=== PATIENT | male | born 1965 | race Caucasian/White ===

== ENCOUNTER 2017-12-15 09:07 | Emergency (ER) | payer BC ==
[2017-12-15 09:40] VITALS: BP 145/94
--- NOTE | 2017-12-15 10:00 | UC ---
Lower Extremity/Ankle HPI - HPI Summary HPI Summary: injured right great toe 1 week ago---has had continued pain and swelling -- walking on side of foot-- - History of Current Complaint Chief Complaint: UCLowerExtremity Stated Complaint: RT FOOT/BIG TOE Time Seen by Provider: 12/15/17 09:48 Hx Obtained From: Patient Onset/Duration: Sudden Onset, Lasting Weeks - 1, Still Present Pain Intensity: 8 Pain Scale Used: 0-10 Numeric Aggravating Factor(s): Standing, Ambulation Alleviating Factor(s): Rest, Elevation Able to Bear Weight: No - Allergies/Home Medications Allergies/Adverse Reactions: Allergies Allergy/AdvReac Type Severity Reaction Status Date / Time No Known Allergies Allergy Verified 12/15/17 09:40 Home Medications: Home Medications Levothyroxine TAB* [Synthroid TAB*] 50 mcg PO DAILY 12/15/17 [History Confirmed 12/15/17] PMH/Surg Hx/FS Hx/Imm Hx Previously Healthy: No Endocrine History: Hypothyroidism - Surgical History Surgical History: Yes Surgery Procedure, Year, and Place: inguinal hernia repair - Family History Known Family History: Positive: None - Social History Occupation: Employed Full-time Lives: With Family Alcohol Use: Weekly Alcohol Amount: weekends Substance Use Type: None Smoking Status (MU): Never Smoked Tobacco Review of Systems Constitutional: Negative Skin: Negative Eyes: Negative ENT: Negative Respiratory: Negative Cardiovascular: Negative Gastrointestinal: Negative Genitourinary: Negative Motor: Decreased ROM Neurovascular: Negative Musculoskeletal: Arthralgia - right great toe Neurological: Negative Psychological: Negative Is Patient Immunocompromised?: No All Other Systems Reviewed And Are Negative: Yes Physical Exam Triage Information Reviewed: Yes Appearance: Well-Appearing, No Pain Distress, Well-Nourished Vital Signs: Initial Vital Signs Temp 99.1 F 12/15/17 09:34 Pulse 86 12/15/17 09:34 Resp 14 12/15/17 09:34 BP 145/94 12/15/17 09:34 Pulse Ox 98 12/15/17 09:34 Vital Signs Reviewed: Yes Eye Exam: Normal Eyes: Positive: Conjunctiva Clear ENT Exam: Normal ENT: Positive: Normal ENT inspection, Hearing grossly normal. Negative: Muffled voice, Hoarse voice Dental Exam: Normal Neck exam: Normal Neck: Positive: Supple, Nontender Respiratory Exam: Normal Respiratory: Positive: Chest non-tender, No respiratory distress, No accessory muscle use Cardiovascular Exam: Normal Cardiovascular: Positive: RRR, Pulses Normal, Brisk Capillary Refill Musculoskeletal Exam: Other - right great toe Musculoskeletal: Positive: Strength Limited @, ROM Limited @, Edema @ Neurological Exam: Normal Neurological: Positive: Alert, Muscle Tone Normal Psychological Exam: Normal Skin Exam: Normal Diagnostics - Radiology No standard instances Xray Interpretation: No Acute Changes Radiology Interpretation Completed By: ED Physician, Radiologist - Patient Name : GWEN SANTANA Medical Record#: [id number] Ordering Physician: Crystal Albrecht NP Acct.#: [id number] : 1965 Age: 52 Sex: M Location: [facility] Exam Date : 12/15/17 1000 ADM Status: REG ER Order Information: TOE RIGHT GREAT Accession Number: [id number] CPT: 51285 INDICATION: Right great toe injury COMPARISON: None TECHNIQUE: AP, lateral, and oblique views were obtained. FINDINGS: There is no acute fracture or dislocation. 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 IMPRESSION: NO ACUTE BONY FINDINGS. < Electronically signed by Nemesio Coello MD in [place]> 12/15/17 1013 Dictated By : Nemesio Coello MD Dictated Date/Time: 12/15/17 1013 Transcribed Date/Time: 12/15/17 1012 Copy to: CC:Shelby Chung MD; Crystal Albrecht NP; Brenden Pollack MD Imaging - [facility] Imaging - [place] [facility] [address] [place] [address] ph [phone] ph ([phone]) ph ( [phone]) 1 of 1 Lower Extremity Course/Dx - Course Course Of Treatment: post op shoe, uric acid, ibuprofen follow blood pressure with pcp - Differential Dx/Diagnosis Provider Diagnoses: elevated blood pressure with out history of hypertension, right great toe contusion Discharge - Sign-Out/Discharge Documenting (check all that apply): Discharge/Admit/Transfer - Discharge Plan Condition: Stable Disposition: HOME Prescriptions: Ibuprofen TAB* [Motrin TAB* 800 MG] 800 mg PO Q8H PRN #30 tab PRN Reason: pain Patient Education Materials: Osteoarthritis (ED), Gout (ED), Foot Contusion (ED ), Hypertension (ED) Referrals: Brenden Pollack MD [Primary Care Provider] - 2 Weeks (for blood pressure re-check) - Billing Disposition and Condition Condition: STABLE Disposition: Home
--- NOTE | 2017-12-15 10:16 | RAD ---
INDICATION: Right great toe injury COMPARISON: None TECHNIQUE: AP, lateral, and oblique views were obtained. FINDINGS: There is no acute fracture or dislocation. 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 IMPRESSION: NO ACUTE BONY FINDINGS.
[2017-12-15 14:03] LABS: Uric Acid 6.8 mg/dL (4.4-7.6)
== END 2017-12-15 10:50 | disposition home or self-care (01) ==
LOC: UCCORT 09:07
DX: S90.111A Contusion of right great toe without damage to nail, initial encounter (principal); X58.XXXA Exposure to other specified factors, initial encounter; Y93.9 Activity, unspecified; Y92.9 Unspecified place or not applicable; E03.9 Hypothyroidism, unspecified; R03.0 Elevated blood-pressure reading, without diagnosis of hypertension
CPT/HCPCS: 36415; 84550; 86140; 99202; G0463

== ENCOUNTER 2019-09-05 13:01 | Emergency (ER) | payer BC ==
[2019-09-05 13:15] VITALS: BP 100/72
--- NOTE | 2019-09-05 13:29 | UC ---
Laceration HPI - HPI Summary HPI Summary: 54 y/o male presents to the urgent care c/o laceration of the left middle and ring finger w/ a clean razor blade while putting some tiles on the entrance on his house around 1245pm. Pain is 6/10 w/o any numbness or tingling sensation over the finger of left hand. He irrigated finger and bleeding stopped w/ pressure. Pt and are not sure when he got the last Tetanus vaccine. Pt can move fingers w/o any difficulty. Pt denies fever, numbness or tingling sensation over the left hand or fingers,SOB, chest pain, abdominal pain, N/v/d. - History Of Current Complaint Chief Complaint: UCLaceration Stated Complaint: LEFT FINGER LACERATION Time Seen by Provider: 09/05/19 13:27 Hx Obtained From: Patient Laceration Location: Finger - Left 3rd and 4th fingers laceration w/ a razor blade Mechanism Of Injury: Sharp Trauma - w/ a razor s/p cutting floor tiles Onset/Duration: Lasting Minutes - 1 hr Severity: Moderate Pain Intensity: 5 Pain Scale Used: 0-10 Numeric Aggravating Factors: Other: - touch Related History: Dominant Hand Right - Allergies/Home Medications Allergies/Adverse Reactions: Allergies Allergy/AdvReac Type Severity Reaction Status Date / Time No Known Allergies Allergy Verified 09/05/19 13:07 Home Medications: Home Medications Levothyroxine TAB* [Synthroid TAB*] 50 mcg PO DAILY 12/15/17 [History Confirmed 09/05/19] Bacitracin OINTMENT* 1 applic TOPICAL TID #1 tube 09/05/19 [Rx] PMH/Surg Hx/FS Hx/Imm Hx Previously Healthy: Yes Endocrine History: Hypothyroidism - Surgical History Surgical History: Yes Surgery Procedure, Year, and Place: inguinal hernia repair - Family History Known Family History: Positive: Hypertension - Social History Occupation: Employed Full-time Lives: With Family Alcohol Use: Weekly Alcohol Amount: weekends Substance Use Type: None Smoking Status (MU): Never Smoked Tobacco - Immunization History Hx Tetanus, Diphtheria Vaccination: No - unsure and requests Review of Systems All Other Systems Reviewed And Are Negative: Yes Constitutional: Positive: Negative Skin: Positive: Other - laceration of left 3rd and 4th finger w/ a razor about 1 hr ago Eyes: Positive: Negative, Diplopia Respiratory: Positive: Negative Cardiovascular: Positive: Negative Gastrointestinal: Positive: Negative Genitourinary: Positive: Negative Motor: Positive: Negative Neurovascular: Positive: Negative Musculoskeletal: Positive: Other: - 3rd and 4th finger pain s/p laceration w/ a razor Neurological/Mental Status: Positive: Negative Psychological: Positive: Negative Is Patient Immunocompromised?: No Physical Exam - Summary Physical Exam Summary: Vital Signs Reviewed: Yes General: well developed, well nourished male sitting in the examining table w/o any apparent distress Eye Exam: Normal Eyes: Positive: Conjunctiva Clear - PERRLA, EOMI, fundi grossly normal ENT: Positive: Normal ENT inspection, Hearing grossly normal, Pharynx normal, TMs normal Neck: Positive: Supple, Nontender, No Lymphadenopathy Respiratory: Positive: Chest non-tender, Lungs clear, Normal breath sounds, No respiratory distress Cardiovascular: Positive: RRR, No Murmur, Pulses Normal, Brisk Capillary Refill Abdomen Description: Positive: Nontender, No Organomegaly, Soft. Negative: CVA Tenderness (R), CVA Tenderness (L) Bowel Sounds: Positive: Present Musculoskeletal: Positive: Strength Intact, ROM Intact, No Edema Neurological: Positive: Alert, Muscle Tone Normal Psychological Exam: Normal Skin: Positive: palmar side of the tip of left 3rd and 4th finger w/ semilunar linear superficial laceration on both fingers about 3.0cm and 2.0 cm respectively, cm in size, bleeding stopped w/ pressure, no foreign body observed. mild tenderness to palpation, no ecchymosis around finger. FROM of all fingers and left hand, sensation intact, capillary refill brisk, and pulses WNL. Triage Information Reviewed: Yes Vital Signs: Initial Vital Signs Temp 97.2 F 09/05/19 13:08 Pulse 93 09/05/19 13:08 Resp 16 09/05/19 13:08 BP 100/72 09/05/19 13:08 Pulse Ox 95 09/05/19 13:08 Laceration Repair - Laceration Repair 1 Description: Irregular - left tip of the 3rd figer w/ a semilunar superficial laceratio. Also left tip of 4th finger w/ a superficial semilunar laceration. Laceration Size After Repair: Length (cm) - left 3rd finger: 3cm in size. and Left 4th finger: 2 cm in size Modified For Repair: No Anesthesia Used: 1.0% Lido - digital block on both finger 3rd and 4th Cleansing Completed Via Routine Prep: Yes Irrigation With Pressure Irrigation Device: Yes Closure Material: Sutures - left 3rd finger w/ 6 sutures, left index finger w/ 4 sutures Closure Method: Single Layer Suture Of: Skin, SQ Suture Type: Prolene - 5.0 Laceration Course/Dx - Course/Dx Course Of Treatment: 54 y/o male presents to the urgent care c/o laceration of the left middle and ring finger w/ a clean razor blade while putting some tiles on the entrance on his house around 1245pm. Pain is 6/10 w/o any numbness or tingling sensation over the finger of left hand. He irrigated finger and bleeding stopped w/ pressure. Pt and are not sure when he got the last Tetanus vaccine. Pt can move fingers w/o any difficulty. Pt denies fever, numbness or tingling sensation over the left hand or fingers,SOB, chest pain, abdominal pain, N/v/d. Hx obtained. Pt w/ palmar side of the tip of left 3rd and 4th finger w/ semilunar linear superficial laceration on both fingers about 3.0cm and 2.0 cm respectively, cm in size, bleeding stopped w/ pressure, no foreign body observed on examination. LACERATION PROCEDURE NOTE: . Copious irrigation was done with saline by the nurse and the wound explored. There was no FB or deep structure injury noted. FROM of left hand and finger. procedure was explained and consent obtained, Timeout performed. The wound was anesthetized by digital block at the base of both fingers with 4 mL of 1% lido with good anesthesia. Sterile drape and prep were done. There were 6 sutures on the left middle finger and 4 sutures on the left ring finger with 5.0 prolene type of suture. The length of the wound after closure was 3.0cm and 2.0 respectively. No debridement done. Pt tolerated the procedure well without adverse effects. Neurovascular intact and FROM. Tdap ordered and applied by nurse. Bacitracin oint. applied over wounds and tube sterile dressing done by nurse. Pt advised to f/u suture removal in 10-12 days and if any signs of infection develop to immediately return to the urgent care of PCP for further management and treatment. Pt understood and agreed and left the clinic ambulating A&Ox3. - Differential Dx - Laceration/Wound Differental Diagnoses: Abrasion, Avulsion, Fracture, Laceration, Puncture Wound , Tendon Laceration - Diagnosis Provider Diagnosis: Laceration of left middle finger, Laceration of left index finger Discharge ED - Sign-Out/Discharge Documenting (check all that apply): Patient Departure - d/c home All imaging exams completed and their final reports reviewed: No Studies - Discharge Plan Condition: Stable Disposition: HOME Prescriptions: Bacitracin OINTMENT* 1 applic TOPICAL TID #1 tube Patient Education Materials: Care For Your Stitches (ED), Laceration (ED) Referrals: Brenden Pollack MD [Primary Care Provider] - 1 Week Additional Instructions: 1-Please apply Bacitracin oint as directed to prevent infection 2- F/u suture removal in 10-12 days w/ your PCP or here at the urgent care. 3- You were given a booster of Tetanus vaccine today 4-Take Ibuprofen or Tylenol PO q6-8hrs prn for pain or swelling. 5- If you develop fever or redness around your finger please return to the Urgent care or f/u w/ your PCP for further evaluation and treatment - Billing Disposition and Condition Condition: STABLE Disposition: Home - Attestation Statements Provider Attestation: Chart has been reviewed. I did not see the patient but was available for consult. ESTELLE.
[2019-09-05] MEDS ORDERED: Tetan/Diph/Pertus SYR(Tdap)* 0.5 ML SYR(BOOSTRIX) use SYR contains LATEX IM ONE (13:40)
[2019-09-05] MEDS ORDERED: Lidocaine 1% MPF ** 5 ML VIAL INJ ONE (13:41)
[2019-09-05] MEDS ORDERED: Ibuprofen TAB* 400 MG PO ONE (13:46)
== END 2019-09-05 15:13 | disposition home or self-care (01) ==
LOC: UCCORT 13:01
DX: S61.213A Laceration without foreign body of left middle finger without damage to nail, initial encounter (principal); S61.211A Laceration without foreign body of left index finger without damage to nail, initial encounter; W26.8XXA Contact with other sharp object(s), not elsewhere classified, initial encounter; Y92.008 Other place in unspecified non-institutional (private) residence as the place of occurrence of the external cause; E03.9 Hypothyroidism, unspecified; Z79.890 Hormone replacement therapy
CPT/HCPCS: 12001; 12002; 90715; 96372; 99212; A9270-GY; G0463